=== PATIENT | female | born 1950 | race Caucasian/White ===

== ENCOUNTER 2022-05-05 10:51 | Emergency (ER) | payer MEDICARE, SELFPAY ==
[2022-05-05 11:00] VITALS: BP 132/57; PULSE 85; RESP 16; TEMP 36.7; O2SAT 97
--- NOTE | 2022-05-05 11:32 | ED.URI ---
HPI - URI/Sore Throat General Chief Complaint: Upper Respiratory Infection Stated Complaint: sore throat and ears Time Seen by Provider: 05/05/22 11:32 Source: patient Mode of arrival: ambulatory Limitations: no limitations History of Present Illness HPI Narrative: 72-year-old female sore throat with radiation to bilateral ears, fatigue, headaches, body aches for 3 days. Had fever 2 days ago. All systems reviewed and negative except as noted above. Related Data Home Medications Medication Instructions Recorded Confirmed amiodarone 100 mg tablet tablet 05/05/22 azelastine 137 mcg (0.1 %) nasal spray intranasal 05/05/22 spray aerosol levothyroxine 25 mcg tablet tablet 05/05/22 liraglutide 0.6 mg/0.1 mL (18 mg/3 ea subcut 05/05/22 mL) subcutaneous pen injector (Victoza 3-Rayray) metformin 1,000 mg tablet tablet 05/05/22 metoprolol succinate 50 mg tablet PO 05/05/22 tablet,extended release 24 hr olmesartan 20 mg tablet tablet 05/05/22 omeprazole 20 mg capsule,delayed cap 05/05/22 release rivaroxaban 20 mg tablet (Xarelto) tablet 05/05/22 Allergies Allergy/AdvReac Type Severity Reaction Status Date / Time No Known Allergies Allergy Verified 05/05/22 11:23 Review of Systems Review of Systems: CONSTITUTIONAL: Reports fever, chills, or sweats. EYES: Denies visual changes, redness, or discharge. ENT: Denies rhinorrhea, congestion. Reports sore throat. Denies otalgia. CARDIOVASCULAR: Denies chest pain, palpitations, or edema. RESPIRATORY: Denies cough or dyspnea. GASTROINTESTINAL: Denies abdominal pain, nausea, vomiting, or diarrhea. GENITOURINARY: Denies dysuria or hematuria. SKIN: Denies rash or itching. MUSCULOSKELETAL: Denies back pain, joint pain, or myalgia. NEUROLOGIC: Reports headache. Denies numbness, or weakness. PSYCHIATRIC: Denies anxiety or depression. All other systems reviewed are negative, except as documented in HPI. PMFSH Comments At time of signature, agree with nursing past medical, surgical, social and family history. There is no relevant family history pertinent to the presenting complaint. Exam Narrative: GENERAL: This is a well-nourished, well-developed patient, in no apparent distress. HEAD: normocephalic, atraumatic. EYES: PERRL. Sclera clear/white. Vision is grossly intact. EARS: External ears normal, auditory canals clear and without drainage, TMs normal without perforation. Hearing grossly intact. NOSE: External nose normal with no obvious nasal discharge, nares without redness, no rhinorrhea. THROAT: Mucous membranes moist. Erythema to posterior pharynx, mild swelling. No exudates. NECK: Neck supple, non-tender without lymphadenopathy, masses or thyromegaly. CARDIOVASCULAR: Regular rate and rhythm without murmurs, gallops, or rubs. RESPIRATORY: Clear to auscultation. Breath sounds equal bilaterally. No wheezes, rales, or rhonchi. SKIN: warm, Dry, intact with no suspicious lesions or rash, good texture and turgor. NEURO: awake, alert, and oriented to person, place and time. There were no obvious focal neurologic abnormalities. EXTREMITIES: No joint tenderness, effusion, or edema noted. Course Course Level of Care: Express Care Visit Vital Signs Vital signs: Vital Signs Temperature 36.7 C 05/05/22 11:00 Pulse Rate 85 05/05/22 11:00 Respiratory Rate 16 05/05/22 11:00 Blood Pressure 132/57 L 05/05/22 11:00 Pulse Oximetry 97 05/05/22 11:00 Oxygen Delivery Room Air 05/05/22 11:00 Temperature 36.7 C 05/05/22 11:00 Pulse Rate 85 05/05/22 11:00 Respiratory Rate 16 05/05/22 11:00 Blood Pressure 132/57 L 05/05/22 11:00 Pulse Oximetry 97 05/05/22 11:00 Oxygen Delivery Room Air 05/05/22 11:00 Reviewed MDM - URI/Sore Throat MDM Narrative Medical decision making narrative: Patient is aware of diagnosis, understands and agrees to treatment plan. Anticipatory guidance given. Patient agrees to follow-up as directed and i
== END 2022-05-05 11:40 | disposition home or self-care (01) ==
PROVIDERS: Emergency Provider Nurse Practitioner Family; PCP Internal Medicine Infectious Disease
DX: J02.0 Streptococcal pharyngitis (principal); I48.91 Unspecified atrial fibrillation; I10 Essential (primary) hypertension; K21.9 Gastro-esophageal reflux disease without esophagitis; Z96.651 Presence of right artificial knee joint; E11.9 Type 2 diabetes mellitus without complications
CPT/HCPCS: 87880; 99213; G0463

== ENCOUNTER 2023-11-17 13:11 | Emergency (ER) | payer MEDICARE, SELFPAY ==
--- NOTE | 2023-11-17 13:14 | ED.URI ---
HPI - URI/Sore Throat General Chief Complaint: Upper Respiratory Infection Stated Complaint: Shortness of Breath/Cough Time Seen by Provider: 11/17/23 13:37 Source: patient and RN notes reviewed Mode of arrival: ambulatory Limitations: no limitations History of Present Illness HPI Narrative: 73-year-old female presents with concern for cough, shortness of breath, nasal congestion. Reports symptoms started about 2 weeks ago. Reports she is taking Mucinex without relief. Reports she initially had decreased appetite but that has returned. She reports her temperature had got up to 99. MD elicited complaint: cough and sore throat Related Data Home Medications Medication Instructions Recorded Confirmed amiodarone 100 mg tablet 1 tablet PO DAILY 05/05/22 11/17/23 levothyroxine 25 mcg tablet 1 tablet PO DAILY 05/05/22 11/17/23 liraglutide 0.6 mg/0.1 mL (18 mg/3 1.8 mg subcut DAILY 05/05/22 11/17/23 mL) subcutaneous pen injector (IBN Mediaza 3-Rayray) metformin 1,000 mg tablet 1 tablet PO BID 05/05/22 11/17/23 metoprolol succinate 50 mg 1 tablet PO DAILY 05/05/22 11/17/23 tablet,extended release 24 hr olmesartan 20 mg tablet 1 tablet PO DAILY 05/05/22 11/17/23 omeprazole 20 mg capsule,delayed 1 cap PO DAILY 05/05/22 11/17/23 release rivaroxaban 20 mg tablet (Xarelto) 1 tablet PO DAILY 05/05/22 11/17/23 albuterol sulfate 90 mcg/actuation 2 puff inhalation Q6H PRN 11/17/23 11/17/23 aerosol inhaler Shortness Of Breath Or Wheezing semaglutide 0.25 mg or 0.5 mg (2 0.25 mg subcut WEEKLY 11/17/23 11/17/23 mg/3 mL) subcutaneous pen injector (Ozempic) Allergies Allergy/AdvReac Type Severity Reaction Status Date / Time No Known Allergies Allergy Verified 11/17/23 13:29 Review of Systems Review of Systems: CONSTITUTIONAL: Denies malaise, chills, sweats, or fever. EYES: Denies visual changes, redness, or discharge. ENT: Reports rhinorrhea, congestion, sinus pain CARDIOVASCULAR: Denies chest pain, palpitations, or edema. RESPIRATORY: Reports cough, dyspnea. GASTROINTESTINAL: Denies abdominal pain, nausea, vomiting, diarrhea SKIN: Denies rash or itching. MUSCULOSKELETAL: Denies myalgia. NEUROLOGIC: Denies headache. All systems reviewed & are unremarkable except as noted in HPI and below PMFSH Comments At time of signature, agree with nursing past medical, surgical, social and family history. There is no relevant family history pertinent to the presenting complaint Exam Narrative: GENERAL: Well-appearing, well-nourished, and in no acute distress. HEAD: Normocephalic EYES: PERRLA, conjunctivae clear ENT: Nares clear. Mucous membranes moist. TM pearly piña with dull light reflex bilaterally; no tragal tenderness. Oropharynx not erythematous without lesions. Tonsils not enlarged and without exudate, no drooling, no hoarseness, no trismus, uvula midline. NECK: Supple. No lymphadenopathy CHEST: Clear to auscultation, breath sounds equal. No wheezing, rhonchi, rales, or stridor. No respiratory distress, speaks in full sentences. Cough noted HEART: Regular rate and rhythm. No murmur heard. SKIN: Warm, dry, no rash. NEURO: Alert and oriented x3. PSYCH: Normal mood and affect Course Course Emergency Course: Patient is aware of diagnosis, understands and agrees to treatment plan. Anticipatory guidance given. Patient agrees to follow-up as directed and is aware of reasons to seek care at the emergency department. Portions of this record may have been created with voice recognition software Level of Care: Express Care Visit Vital Signs Vital signs: Reviewed. MDM - URI/Sore Throat MDM Narrative Medical decision making narrative: Differential diagnosis considered: Robison virus, strep pharyngitis, allergic rhinitis, upper respiratory tract infection, sinusitis, rhinosinusitis, nasopharyngitis. viral pharyngitis, otitis media, otitis externa, pneumonia, bronchitis, viral cough syndrome, viral syndrome, and influenza.
[2023-11-17 13:26] VITALS: BP 135/67; PULSE 72; RESP 16; TEMP 36.7; O2SAT 100
[2023-11-17 13:29] VITALS: BP 135/67; PULSE 72; RESP 16; TEMP 36.7; O2SAT 100
== END 2023-11-17 13:37 | disposition home or self-care (01) ==
PROVIDERS: Emergency Provider Nurse Practitioner; PCP Internal Medicine Infectious Disease
DX: J32.9 Chronic sinusitis, unspecified (principal); J40 Bronchitis, not specified as acute or chronic; I48.91 Unspecified atrial fibrillation; E78.00 Pure hypercholesterolemia, unspecified; I10 Essential (primary) hypertension; K21.9 Gastro-esophageal reflux disease without esophagitis; Z96.651 Presence of right artificial knee joint; E11.9 Type 2 diabetes mellitus without complications; Z79.84 Long term (current) use of oral hypoglycemic drugs; Z87.891 Personal history of nicotine dependence; Z79.01 Long term (current) use of anticoagulants
CPT/HCPCS: 99213; G0463